=== PATIENT | female | born 1975 | race Caucasian/White ===

== ENCOUNTER 2024-08-15 12:18 | Outpatient (CLI) | payer OTHER, SELFPAY | END 2024-08-15 12:19 | disposition home or self-care (01) | LOC: FRMREF 12:20 | PROVIDERS: PCP Nurse Practitioner Family; Visit Provider Nurse Practitioner Family | DX: R53.83 Other fatigue (principal); Z13.6 Encounter for screening for cardiovascular disorders | CPT/HCPCS: 80053; 80061; 82728; 84443 ==